=== PATIENT | female | born 1990 | race American Indian/Alaskan Native ===

== ENCOUNTER 2019-06-06 00:22 | Emergency (ER) | payer SELFPAY ==
[2019-06-06] MEDS ORDERED: SODIUM CHLORIDE 0.9% 1000 ML 1,000 ML IV ONE (01:49)
[2019-06-06] MEDS ORDERED: DICYCLOMINE 20 MG/2 ML INJ IM ONE (01:49)
[2019-06-06] MEDS ORDERED: ONDANSETRON 4 MG/2 ML INJ IV ONE (01:49)
[2019-06-06 01:57] LABS: Basophils % (Auto) 0.2 % (0.0-1.8); Eosinophils % (Auto) 0.3 % (0.0-4.3); Hematocrit 43.5 % (30.3-42.9); Hemoglobin 14.4 gm/dl (10.1-14.3); Lymphocytes # (Auto) 0.6 K/mm3 (1.2-5.4); Lymphocytes % (Auto) 4.7 % (13.4-35.0); Mean Corpuscular HGB Conc 33 % (30-34); Mean Corpuscular Volume 84 fl (79-97); Monocytes # (Auto) 0.7 K/mm3 (0.0-0.8); Monocytes % (Auto) 5.6 % (0.0-7.3); Platelet Count 282 K/mm3 (140-440); Red Cell Distribution Width 16.2 % (13.2-15.2)
[2019-06-06 02:22] LABS: Alanine Aminotransferase 15 units/L (7-56); Albumin 4.5 g/dL (3.9-5); BUN/Creatinine Ratio 13; Blood Urea Nitrogen 10 mg/dL (7-17); Calcium 9.7 mg/dL (8.4-10.2); Hemolysis Index 5
[2019-06-06 02:30] LABS: Bacteria,Urine 1+ /HPF (Negative); Bilirubin,Urine NEG (Negative); Blood,Urine NEG (Negative); Color,Urine Yellow (Yellow); Mucus,Urine 1+ /HPF
--- NOTE | 2019-06-06 03:04 | Emergency Department Report ---
ED Abdominal Pain HPI - General Chief Complaint: Abdominal Pain Stated Complaint: STOMACH PAIN,CHILL,N//V Time Seen by Provider: 06/06/19 01:48 Source: patient Mode of arrival: Ambulatory Limitations: No Limitations - History of Present Illness Initial Comments: Ms Bunn is a 28 y/o aaf with nmh who presents for abd pain radiating to right cva, there is intermittent n/v . pain described as cramp spasm . pt states urinay frequency, n o hematuira, no vaginal discharge. , last po intake this am, Complaint: abdominal pain, flank pain Onset/Timin -: days(s) Location: RLQ Radiation: LLQ, RLQ Migration to: R flank Severity: moderate Severity scale (0 -10): 4 Quality: cramping, aching Consistency: constant Improves With: nothing Worsens With: movement Associated Symptoms: nausea, vomiting, fever, chills, constipation - Related Data LMP Date: 04/26/19 Previous Rx's Medication Instructions Recorded Last Taken Type Dicyclomine [Bentyl] 10 mg PO QID PRN #30 capsule 06/06/19 Unknown Rx Ibuprofen [Motrin 800 MG tab] 800 mg PO Q8HR PRN #30 tablet 06/06/19 Unknown Rx Ondansetron [Zofran Odt] 4 mg PO Q8HR PRN #12 tab.rapdis 06/06/19 Unknown Rx Allergies Allergy/AdvReac Type Severity Reaction Status Date / Time No Known Allergies Allergy Unverified 06/06/19 00:49 ED Review of Systems ROS: Stated complaint: STOMACH PAIN,CHILL,N//V Other details as noted in HPI Constitutional: chills, malaise Eyes: denies: eye pain, eye discharge, vision change ENT: congestion. denies: as per HPI, ear pain Respiratory: denies: cough, shortness of breath, wheezing Cardiovascular: denies: chest pain, palpitations Endocrine: no symptoms reported Gastrointestinal: abdominal pain, nausea, vomiting, diarrhea. denies: constipation, hematemesis, melena Genitourinary: as per HPI Musculoskeletal: back pain (right flank). denies: joint swelling, arthralgia Skin: denies: rash, lesions Neurological: denies: headache, weakness, paresthesias Psychiatric: denies: anxiety, depression Hematological/Lymphatic: denies: easy bleeding, easy bruising ED Past Medical Hx - Past Medical History Previous Medical History?: No - Surgical History Past Surgical History?: Yes Additional Surgical History: Cyst from Tail Bone. - Social History Smoking Status: Never Smoker Substance Use Type: None - Medications Home Medications: Home Medications Medication Instructions Recorded Confirmed Last Taken Type Dicyclomine [Bentyl] 10 mg PO QID PRN #30 capsule 06/06/19 Unknown Rx Ibuprofen [Motrin 800 MG tab] 800 mg PO Q8HR PRN #30 tablet 06/06/19 Unknown Rx Ondansetron [Zofran Odt] 4 mg PO Q8HR PRN #12 tab.rapdis 06/06/19 Unknown Rx ED Physical Exam - General Limitations: No Limitations General appearance: alert, in no apparent distress - Head Head exam: Present: atraumatic, normocephalic - Eye Eye exam: Present: normal appearance, PERRL, EOMI Pupils: Present: normal accommodation - ENT ENT exam: Present: mucous membranes moist - Neck Neck exam: Present: normal inspection, tenderness, full ROM. Absent: lymphadenopathy - Respiratory Respiratory exam: Present: normal lung sounds bilaterally. Absent: respiratory distress, wheezes, stridor, chest wall tenderness - Cardiovascular Cardiovascular Exam: Present: regular rate, normal rhythm, normal heart sounds. Absent: systolic murmur, diastolic murmur, rubs, gallop - GI/Abdominal GI/Abdominal exam: Present: soft, normal bowel sounds. Absent: distended, tend erness, mass, bruit, pulsatile mass - Rectal Rectal exam: Present: deferred - Extremities Exam Extremities exam: Present: normal inspection, full ROM, normal capillary refill. Absent: tenderness, pedal edema - Back Exam Back exam: Present: normal inspection, full ROM, tenderness, CVA tenderness (R), muscle spasm. Absent: CVA tenderness (L), paraspinal tenderness, vertebral tenderness, rash noted - Neurological Exam Neurological exam: Present: alert, oriented X3, CN II-XII intact, normal gait, other. Absent: motor sensory deficit - Psychiatric Psychiatric exam: Present: normal affect, normal mood - Skin Skin exam: Present: warm, dry, intact, normal color. Absent: rash ED Course Vital Signs 06/06/19 00:30 Temperature 98.5 F Pulse Rate 105 H Respiratory 18 Rate Blood Pressure 113/78 O2 Sat by Pulse 99 Oximetry ED Medical Decision Making - Lab Data Result diagrams: 06/06/19 01:22 06/06/19 01:22 Labs 06/06/19 06/06/19 06/06/19 01:22 01:22 01:22 WBC 13.3 H RBC 5.20 H Hgb 14.4 H Hct 43.5 H MCV 84 MCH 28 MCHC 33 RDW 16.2 H Plt Count 282 Lymph % (Auto) 4.7 L [place] % (Auto) 5.6 Eos % (Auto) 0.3 Baso % (Auto) 0.2 Lymph # 0.6 L [place] # 0.7 Eos # 0.0 Baso # 0.0 Seg Neutrophils % 89.2 H Seg Neutrophils # 11.9 H Sodium 143 Potassium 3.8 Chloride 106.9 Carbon Dioxide 23 Anion Gap 17 BUN 10 Creatinine 0.8 Estimated GFR > 60 BUN/Creatinine Ratio 13 Glucose 123 H Calcium 9.7 Total Bilirubin 0.40 AST 18 ALT 15 Alkaline Phosphatase 88 Total Protein 8.3 H Albumin 4.5 Albumin/Globulin Ratio 1.2 Lipase 27 HCG, Qual Negative Urine Color Urine Turbidity Urine pH Ur Specific [place] Urine Protein Urine Glucose (UA) Urine Ketones Urine Blood Urine Nitrite Urine Bilirubin Urine Urobilinogen Ur Leukocyte Esterase Urine WBC (Auto) Urine RBC (Auto) U Epithel Cells (Auto) Urine Bacteria (Auto) Urine Mucus 06/06/19 01:57 WBC RBC Hgb Hct MCV MCH MCHC RDW Plt Count Lymph % (Auto) [place] % (Auto) Eos % (Auto) Baso % (Auto) Lymph # [place] # Eos # Baso # Seg Neutrophils % Seg Neutrophils # Sodium Potassium Chloride Carbon Dioxide Anion Gap BUN Creatinine Estimated GFR BUN/Creatinine Ratio Glucose Calcium Total Bilirubin AST ALT Alkaline Phosphatase Total Protein Albumin Albumin/Globulin Ratio Lipase HCG, Qual Urine Color Yellow Urine Turbidity Slightly-cloudy Urine pH 8.0 H Ur Specific [place] 1.026 Urine Protein 30 mg/dl Urine Glucose (UA) Neg Urine Ketones 20 Urine Blood Neg Urine Nitrite Neg Urine Bilirubin Neg Urine Urobilinogen 2.0 Ur Leukocyte Esterase Neg Urine WBC (Auto) 2.0 Urine RBC (Auto) 3.0 U Epithel Cells (Auto) 9.0 Urine Bacteria (Auto) 1+ Urine Mucus 1+ - Radiology Data Radiology results: report reviewed, image reviewed Ordering Physician: FLY LUIS NP Date of Service: 06/06/19 Procedure(s): CT abdomen pelvis wo con Accession Number(s): [id number] cc: FLY LUIS NP CT ABDOMEN AND PELVIS WITHOUT CONTRAST INDICATION: right flank pain. COMPARISON: No relevant prior imaging study available. TECHNIQUE: Axial, coronal and sagittal CT imaging of the abdomen and pelvis was performed without contrast. Lack of intravenous contrast limits evaluation of the vascular and solid organs. All CT scans at this location are performed using CT dose reduction for ALARA by means of automated exposure control. FINDINGS: LOWER CHEST: No significant abnormality. LIVER: No significant abnormality. BILIARY: No significant abnormality. PANCREAS: No significant abnormality. SPLEEN: No significant abnormality. ADRENALS: No significant abnormality. KIDNEYS AND URETERS: No significant abnormality. GI TRACT: No significant abnormality of the stomach, small bowel or colon. Unremarkable appendix. PERITONEUM: No free fluid. No free air. No fluid collection. LYMPH NODES: No significant adenopathy. VASCULATURE: No significant abnormality. URINARY BLADDER: No significant abnormality. REPRODUCTIVE ORGANS: No significant abnormality. ADDITIONAL FINDINGS: None. SKELETAL SYSTEM: No significant abnormality. IMPRESSION: No acute abnormality of the abdomen or pelvis. Signer Name: Leoncio Marshall MD Signed: 06/06/2019 3:26 AM Workstation Name: [id number] Transcribed By: MN Dictated By: Leoncio Marshall MD Electronically Authenticated By: Leoncio Marshall MD Signed Date/Time: 06/06/19325 DD/ 3 TD/TT: - Medical Decision Making ct abd pelvis, normal , no mass, bleed or abnormality, wbc: 13.3, ua: small wbc, yuri, no leuk, no nitrates, hr is improved , symptoms are improved, pt is now tolerating po intake plan: zofran odt, ibuprofen, continue to hydrate, follow up with primary care in 2-3 days, This is likely viral syndrome. Critical care attestation.: If time is entered above; I have spent that time in minutes in the direct care of this critically ill patient, excluding procedure time. ED Disposition Clinical Impression: Nausea vomiting and diarrhea Abdominal pain Qualifiers: Abdominal location: lower abdomen, unspecified Qualified Code(s): R10.30 - Lo wer abdominal pain, unspecified Disposition: -01 TO HOME OR SELFCARE Is pt being admited?: No Does the pt Need Aspirin: No Condition: Stable Instructions: Abdominal Pain (ED), Acute Nausea and Vomiting (ED) Prescriptions: Dicyclomine [Bentyl] 10 mg PO QID PRN #30 capsule PRN Reason: abdominal spasms Ibuprofen [Motrin 800 MG tab] 800 mg PO Q8HR PRN #30 tablet PRN Reason: pain Ondansetron [Zofran Odt] 4 mg PO Q8HR PRN #12 tab.rapdis PRN Reason: Nausea And Vomiting Referrals: [facility] [Outside] - 3-5 Days Forms: Work/School Release Form(ED) Time of Disposition: 03:51
--- NOTE | 2019-06-06 03:31 | Cat Scan Report ---
CT ABDOMEN AND PELVIS WITHOUT CONTRAST INDICATION: right flank pain. COMPARISON: No relevant prior imaging study available. TECHNIQUE: Axial, coronal and sagittal CT imaging of the abdomen and pelvis was performed without co ntrast. Lack of intravenous contrast limits evaluation of the vascular and solid organs. All CT sca ns at this location are performed using CT dose reduction for ALARA by means of automated exposure co ntrol. FINDINGS: LOWER CHEST: No significant abnormality. LIVER: No significant abnormality. BILIARY: No significant abnormality. PANCREAS: No significant abnormality. SPLEEN: No significant abnormality. ADRENALS: No significant abnormality. KIDNEYS AND URETERS: No significant abnormality. GI TRACT: No significant abnormality of the stomach, small bowel or colon. Unremarkable appendix. PERITONEUM: No free fluid. No free air. No fluid collection. LYMPH NODES: No significant adenopathy. VASCULATURE: No significant abnormality. URINARY BLADDER: No significant abnormality. REPRODUCTIVE ORGANS: No significant abnormality. ADDITIONAL FINDINGS: None. SKELETAL SYSTEM: No significant abnormality. IMPRESSION: No acute abnormality of the abdomen or pelvis. Signer Name: Leoncio Marshall MD Signed: 06/06/2019 3:26 AM Workstation Name: [email or web address]
[2019-06-06 04:51] VITALS: BP 112/69
== END 2019-06-06 04:15 | disposition home or self-care (01) ==
LOC: ED 00:22
DX: R10.31 Right lower quadrant pain (principal); R11.2 Nausea with vomiting, unspecified; R19.7 Diarrhea, unspecified; Z79.899 Other long term (current) drug therapy
CPT/HCPCS: 36415; 74176; 80053; 81001; 83690; 84703; 85025; 96361; 96372; 96374; 99284; J0500; J2405; J7030

== ENCOUNTER 2019-09-11 17:55 | Emergency (ER) | payer SELFPAY ==
[2019-09-11] MEDS ORDERED: SODIUM CHLORIDE 0.9% 1000 ML 1,000 ML ONE (19:15)
[2019-09-11] MEDS ORDERED: ONDANSETRON 4 MG/2 ML INJ ONE (19:15)
[2019-09-11] MEDS ORDERED: SODIUM CHLORIDE 0.9% 1000 ML 1,000 ML IV ONE (19:15)
[2019-09-11] MEDS ORDERED: ONDANSETRON 4 MG/2 ML INJ IV ONE (19:16)
[2019-09-11 19:23] LABS: Hemoglobin 13.9 gm/dl (10.1-14.3); Mean Corpuscular HGB Conc 33 % (30-34); Mean Corpuscular Volume 85 fl (79-97); Platelet Count 326 K/mm3 (140-440); Red Blood Count 4.94 M/mm3 (3.65-5.03); Red Cell Distribution Width 13.7 % (13.2-15.2)
[2019-09-11] MEDS ORDERED: ACETAMINOPHEN 500 MG TAB PO ONE (19:36)
[2019-09-11 19:48] LABS: BUN/Creatinine Ratio 15; Blood Urea Nitrogen 9 mg/dL (7-17); Calcium 9.9 mg/dL (8.4-10.2); Hemolysis Index 8
[2019-09-11 20:10] LABS: Albumin 4.7 g/dL (3.9-5); Bilirubin,Direct 0.3 mg/dL (0-0.2)
[2019-09-11 20:49] LABS: Bacteria,Urine 1+ /HPF (Negative); Bilirubin,Urine NEG (Negative); Blood,Urine NEG (Negative); Color,Urine Yellow (Yellow); Mucus,Urine 3+ /HPF
--- NOTE | 2019-09-11 21:20 | Ultrasound Report ---
OB ultrasound first trimester INDICATION: FINDINGS: Uterus measures 10.9 cm in length. The right ovary measures 2.6 cm and the left ovary measu res 2.9 cm. There is a 2.7 cm complex structure in the right adnexa which appears to be separate from the ovary. This may represent a complex fibroid arising from the uterus. There is an intrauterine . [employer]-rump length is 6.5 cm correlating to 12 week 6 day gestatio n. heart rate is 135 bpm. IMPRESSION: There is a 12 week 6 day intrauterine with cardiac activity. Complex structure in the adnexa/right uterus is indeterminate. This could be followed with ultrasound . Signer Name: Artie Ponce MD Signed: 09/11/2019 9:16 PM Workstation Name: [id number]
--- NOTE | 2019-09-11 22:20 | Emergency Department Report ---
ED N/V/D HPI - General Chief complaint: Nausea/Vomiting/Diarrhea Stated complaint: PREG MORNING SICKNESS, DEHYDRATED Source: patient Mode of arrival: Ambulatory Limitations: No Limitations - History of Present Illness Initial comments: Patient is a A0 29-year-old -B[place] female who is approximately 12 weeks gestation and who presented to the ED with intractable nausea and vomiting and diffuse abdominal pain for the last 1 week, worse in the last 2 days. Patient states that she has not been able to keep anything down because of intractable nausea and vomiting. Patient denies fever, chills, diarrhea, dizziness, vaginal bleeding, vaginal discharge, dysuria, urinary frequency and urgency, low back pain, syncope, chest pain, sore throat, shortness of breath, h eadache or change in vision or seizures. Patient states that she has not followed up with any [facility] physician MD complaint: nausea, vomiting, abdominal pain -: Sudden, week(s) (1) Description of Vomiting: food contents, watery Description of Diarrhea: other (None) Associated Abdominal Pain: Yes (Mildly diffuse) Location: diffuse Radiation: none Severity: moderate Pain Scale: 5 Quality: cramping, dull Consistency: intermittent Improves with: none Worsens with: eating Context: other ( related) Associated Symptoms: denies other symptoms, loss of appetite, nausea/vomiting. denies: myalgias, chest pain, cough, diaphoresis, fever/chills, headaches, malaise, rash, dysuria, shortness of breath, syncope, weakness, other - Related Data Previous Rx's Medication Instructions Recorded Last Taken Type Dicyclomine [Bentyl] 10 mg PO QID PRN #30 capsule 06/06/19 Unknown Rx Ibuprofen [Motrin 800 MG tab] 800 mg PO Q8HR PRN #30 tablet 06/06/19 Unknown Rx Ondansetron [Zofran Odt] 4 mg PO Q8HR PRN #12 tab.rapdis 06/06/19 Unknown Rx Acetaminophen [Tylenol] 500 mg PO Q6HR PRN #30 tablet 09/11/19 Unknown Rx Famotidine [Pepcid] 20 mg PO Q12H #30 tablet 09/11/19 Unknown Rx Promethazine [Phenergan] 25 mg PO Q6HR PRN #30 tab 09/11/19 Unknown Rx Allergies Allergy/AdvReac Type Severity Reaction Status Date / Time No Known Allergies Allergy Verified 09/11/19 19:14 ED Review of Systems ROS: Stated complaint: PREG MORNING SICKNESS, DEHYDRATED Other details as noted in HPI Constitutional: denies: chills, fever Eyes: denies: eye pain, eye discharge, vision change ENT: denies: ear pain, throat pain Respiratory: denies: cough, shortness of breath, wheezing Cardiovascular: denies: chest pain, palpitations Endocrine: no symptoms reported Gastrointestinal: abdominal pain, nausea, vomiting. denies: diarrhea Genitourinary: denies: urgency, dysuria, discharge Musculoskeletal: denies: back pain, joint swelling, arthralgia Skin: denies: rash, lesions Neurological: denies: headache, weakness, paresthesias Psychiatric: denies: anxiety, depression Hematological/Lymphatic: denies: easy bleeding, easy bruising ED Past Medical Hx - Past Medical History Previous Medical History?: No - Surgical History Additional Surgical History: Cyst from Tail Bone. - Social History Smoking Status: Never Smoker - Medications Home Medications: Home Medications Medication Instructions Recorded Confirmed Last Taken Type Dicyclomine [Bentyl] 10 mg PO QID PRN #30 capsule 06/06/19 Unknown Rx Ibuprofen [Motrin 800 MG tab] 800 mg PO Q8HR PRN #30 tablet 06/06/19 Unknown Rx Ondansetron [Zofran Odt] 4 mg PO Q8HR PRN #12 tab.rapdis 06/06/19 Unknown Rx Acetaminophen [Tylenol] 500 mg PO Q6HR PRN #30 tablet 09/11/19 Unknown Rx Famotidine [Pepcid] 20 mg PO Q12H #30 tablet 09/11/19 Unknown Rx Promethazine [Phenergan] 25 mg PO Q6HR PRN #30 tab 09/11/19 Unknown Rx ED Physical Exam - General Limitations: No Limitations General appearance: alert, in no apparent distress - Head Head exam: Present: atraumatic, normocephalic, normal inspection - Eye Eye exam: Present: normal appearance, PERRL, EOMI Pupils: Present: normal accommodation - ENT ENT exam: Present: normal exam, normal orophraynx, mucous membranes moist, TM's normal bilaterally, normal external ear exam - Neck Neck exam: Present: normal inspection, full ROM - Respiratory Respiratory exam: Present: normal lung sounds bilaterally. Absent: respiratory distress, wheezes, rhonchi, chest wall tenderness, accessory muscle use - Cardiovascular Cardiovascular Exam: Present: normal rhythm, tachycardia, normal heart sounds. Absent: systolic murmur, diastolic murmur, rubs, gallop - GI/Abdominal GI/Abdominal exam: Present: soft, normal bowel sounds. Absent: tenderness, guarding, rebound, hyperactive bowel sounds, hypoactive bowel sounds - Extremities Exam Extremities exam: Present: normal inspection, full ROM, normal capillary refill - Back Exam Back exam: Present: normal inspection, full ROM. Absent: tenderness, CVA tenderness (R), muscle spasm, paraspinal tenderness, vertebral tenderness - Neurological Exam Neurological exam: Present: alert, oriented X3, CN II-XII intact, normal gait, reflexes normal - Psychiatric Psychiatric exam: Present: normal affect, normal mood - Skin Skin exam: Present: warm, dry, intact, normal color. Absent: rash ED Course Vital Signs 09/11/19 18:20 Temperature 98.9 F Pulse Rate 116 H Respiratory 16 Rate Blood Pressure 130/77 [Right] O2 Sat by Pulse 99 Oximetry ED Medical Decision Making - Lab Data Result diagrams: 09/11/19 19:13 09/11/19 19:13 - Radiology Data Radiology results: report reviewed, image reviewed Findings [facility] [address] [place] [address] Ultrasound Report Signed Patient: DILMA QUESADA MR#: [id number] : 1990 Acct:[id number] Age/Sex: 29 / F ADM Date: 09/11/19 Loc: ED Attending Dr: Ordering Physician: SHALINI STAPLES Date of Service: 09/11/19 Procedure(s): US OB <= 14 weeks fetus Accession Number(s): [id number] cc: SHALINI STAPLES OB ultrasound first trimester INDICATION: FINDINGS: Uterus measures 10.9 cm in length. The right ovary measures 2.6 cm and the left ovary measures 2.9 cm. There is a 2.7 cm complex structure in the right adnexa which appears to be separate from the ovary. This may represent a complex fibroid arising from the uterus. There is an intrauterine . [place]-rump length is 6.5 cm correlating to 12 week 6 day gestation. heart rate is 135 bpm. IMPRESSION: There is a 12 week 6 day intrauterine with cardiac activity. Complex structure in the adnexa/right uterus is indeterminate. This could be followed with ultrasound. Signer Name: Artie Ponce MD Signed: 09/11/2019 9:16 PM Workstation Name: [id number] Transcribed By: SS Dictated By: Artie Ponce MD Electronically Authenticated By: Artie Ponce MD Signed Date/Time: 09/11/192115 DD/ 11 TD/TT: - Medical Decision Making This is a A0 29-year-old -B[place] female who is approximately 12 weeks gestation and who presented to the ED with persistently intractable nausea and vomiting with mildly diffuse abdominal pain. In the ED, patient is alert and oriented x3 and is not in distress but tachycardic and afebrile in triage. Lab test results were reviewed and showed acute leukocytosis of 11,200, acute hyponatremia of 131 mmol/L, acute hypokalemia of 3.5 mmol/L and acute hypochloremia of 94.5 mmol/L and hCG quant of [id number]. Urinalysis unremarkable. Patient was treated in the ED with antiemetics, also received normal saline 1 L IV bolus. ultrasound shows a 12 week 6 day intrauterine with cardiac activity, and a heart rate of 135 bpm. There is however a complex structure in the adnexa/right uterus is indeterminate, likely a uterine fibroid. This could be followed with ultrasound. On reevaluation, patient felt better, vital signs improved significantly and the patient tachycardia resolved. Patient was discharged home on antiemetics, antacids and advised to take Tylenol as needed for pain. Patient was given a referral today [facility] physician on-call Dr. Welch for follow-up. Patient was advised to contact Dr. Welch office on Saturday December 14, 2019 thing in the morning to schedule a follow-up appointment. Patient was otherwise advised to return to the ED immediately if symptoms get worse. - Differential Diagnosis Hyperemesis gravidarum; Dehydration; UTI; GERD Critical care attestation.: If time is entered above; I have spent that time in minutes in the direct care of this critically ill patient, excluding procedure time. ED Disposition Clinical Impression: Hyperemesis gravidarum with dehydration Abdominal pain in Qualifiers: Trimester: first trimester Qualified Code(s): O26.891 - Other specified related conditions, first trimester Disposition: DC-01 TO HOME OR SELFCARE Is pt being admited?: No Does the pt Need Aspirin: No Condition: Stable Instructions: Hyperemesis Gravidarum (ED), Abdominal Pain in (ED) Additional Instructions: Your shows a viable intrauterine with a heart rate of 135 bpm approximately 12 weeks and 6 days. Maintain a clear liquid diet for 12 to 24 hours, drink plenty of fluids and take medication as needed for nausea and vomiting. Take Tylenol as needed for pain. Follow-up with the [facility] physician Dr. Welch in 2 days for further evaluation. Contacted the [facility] office first thing in the morning on September 13, 2019 to schedule a follow-up appointment. Return to the ED immediately if symptoms get worse. Prescriptions: Acetaminophen [Tylenol] 500 mg PO Q6HR PRN #30 tablet PRN Reason: Pain , Severe (7-10) Famotidine [Pepcid] 20 mg PO Q12H #30 tablet Promethazine [Phenergan] 25 mg PO Q6HR PRN #30 tab PRN Reason: Nausea Referrals: ADAN WELCH MD [Staff Physician] - 3-5 Days Time of Disposition: 22:31 Print Language: GREEK
[2019-09-11 22:57] VITALS: BP 110/73
== END 2019-09-11 22:57 | disposition home or self-care (01) ==
LOC: ED 17:55
DX: O21.1 Hyperemesis gravidarum with metabolic disturbance (principal); O26.91 Pregnancy related conditions, unspecified, first trimester; R10.84 Generalized abdominal pain; Z79.1 Long term (current) use of non-steroidal anti-inflammatories (NSAID); Z79.899 Other long term (current) drug therapy; Z3A.12 12 weeks gestation of pregnancy
CPT/HCPCS: 36415; 76801; 80048; 80076; 81001; 83690; 84702; 84703; 85027; 96361; 96374; 99284; J2405; J7030